=== PATIENT | male | born 1990 | race Caucasian/White ===

== ENCOUNTER 2020-12-14 09:41 | Emergency (ER) | payer BC, SELFPAY ==
[2020-12-14 09:55] VITALS: BP 154/105; PULSE 78; RESP 18; TEMP 36.7; O2SAT 100; BMI 22.9
--- NOTE | 2020-12-14 10:21 | XR_ITS ---
PROCEDURE INFORMATION: Exam: XR Chest Exam date and time: 12/14/2020 10:21 AM Age: 30 years old Clinical indication: Chest pressure; Patient HX: Mid chest pain, per patient pain is also between shoulder blades TECHNIQUE: Imaging protocol: XR of the chest. Views: 1 view. COMPARISON: No relevant prior studies available. FINDINGS: Lungs: Unremarkable. No consolidation. Pleural spaces: Unremarkable. No pleural effusion. No pneumothorax. Heart/Mediastinum: Unremarkable. No cardiomegaly. Bones/joints: Unremarkable. IMPRESSION: No acute findings.
[2020-12-14 10:30] VITALS: BP 162/96; PULSE 70; RESP 22; O2SAT 99
--- NOTE | 2020-12-14 10:33 | ECG_ITS ---
APPROVED REPORT Exam: Resting ECG HR:73 bpm ECG Measurements Heart Rate 73 AXES FL 144 P 63 QRSd 92 QRS 71 QT 366 T 41 QTc 403 Conclusion Normal sinus rhythm Normal ECG Electronically signed by : Akin Kaiser MD 12/14/2020 21:10:04
[2020-12-14 10:53] LABS: Basophils # 0.1 K/mm3 (0-0.2); Basophils % 0.7 % (0.1-2.0); Eosinophils # 0.4 K/mm3 (0.0-0.4); Eosinophils % 5.2 % (0.1-12.0); Hematocrit 46.2 % (42.0-52.0); Hemoglobin 15.4 g/dL (14.1-18.0); Lymphocytes # 2.5 K/mm3 (0.7-4.5); Lymphocytes % 35.7 % (10-50); Mean Corpuscular HGB Conc 33.4 g/dL (31.8-35.4); Mean Corpuscular Hemoglobin 29.2 pg (27.0-31.2); Mean Corpuscular Volume 87.5 fl (80-94); Mean Platelet Volume 6.7 fl (7.4-10.4); Monocytes # 0.4 K/mm3 (0.1-1.0); Monocytes % 6.1 % (1.7-9.3); Neutrophils # 3.6 K/mm3 (1.8-7.8); Neutrophils % 52.3 % (37.0-80.0); Platelet Count 260 K/mm3 (142-424); Red Blood Count 5.28 M/mm3 (4.60-6.20); Red Cell Distribution Width 12.4 % (11.5-17.5); White Blood Count 6.9 K/mm3 (4.8-10.8)
[2020-12-14 10:54] LABS: Chloride 104 mmol/L (98-107); Sodium 141 mmol/L (136-145)
[2020-12-14 10:55] LABS: Potassium 4.3 mmoL/L (3.5-5.1)
[2020-12-14 10:57] LABS: Blood Urea Nitrogen 18 mg/dl (9-20); Creatinine Clearance Estimated 110 mL/min (50-200); Estimated Glomerular Filt Rate 87 ml/min (>60); GFR (African American) 105 ML/MIN (>60)
--- NOTE | 2020-12-14 10:57 | CT_ITS ---
PROCEDURE INFORMATION: Exam: CT Chest With Contrast; Diagnostic Exam date and time: 12/14/2020 10:57 AM Age: 30 years old Clinical indication: Chest wall pain; Additional info: Esophageal foreign body sensation/shart chest pain TECHNIQUE: Imaging protocol: Diagnostic computed tomography of the chest with contrast. Radiation optimization: All CT scans at this facility use at least one of these dose optimization techniques: automated exposure control; mA and/or kV adjustment per patient size (includes targeted exams where dose is matched to clinical indication); or iterative reconstruction. Contrast material: ISOVUE; Contrast volume: 75 ml; Contrast route: IV; COMPARISON: CR XR CHEST PORTABLE 12/14/2020 10:35 AM FINDINGS: Lungs: Unremarkable. No consolidation. No masses. Pleural spaces: Unremarkable. No pneumothorax. No pleural effusion. Heart: Unremarkable. No cardiomegaly. No pericardial effusion. Mediastinal space: No definite radiopaque foreign body identified within the esophagus. Questionable mild esophageal wall thickening. Aorta: Unremarkable. No aortic aneurysm. Lymph nodes: Unremarkable. No enlarged lymph nodes. Bones/joints: Unremarkable. No acute fracture. Soft tissues: Unremarkable. IMPRESSION: No definite radiopaque foreign body identified within the esophagus. Questionable mild esophageal wall thickening.
[2020-12-14 10:58] LABS: Anion Gap 13.3 mEq/L (5-15); Calcium 9.5 mg/dl (8.4-10.2); Carbon Dioxide 28 mmol/L (22.0-30.0); Glucose 105 mg/dl (74-100)
[2020-12-14 11:00] VITALS: BP 152/98; PULSE 70; RESP 14; O2SAT 96
[2020-12-14 11:18] LABS: Troponin I < 0.01 ng/ml (0.00-0.034)
[2020-12-14 13:26] VITALS: BP 120/73; PULSE 65; RESP 14; TEMP 36.8; O2SAT 98
--- NOTE | 2020-12-15 08:03 | HMH.EDGENADL ---
ED Disposition Clinical Impression: Esophagitis Disposition: Home, Self-Care Condition on Discharge: Good Instructions: DI for Esophagitis Additional Instructions: three scripts have been called in to your pharmacy. Return to ED for any worsening symptoms, or you unable to eat or drink. Follow up with with PCP within the next week. Prescriptions: Sucralfate [Carafate 1gm/10mL Susp] 1 gm PO ACHS 10 Days #400 ml Prescription Printed methylPREDNISolone [Medrol] 4 mg PO DIRECTED #21 Prescription Printed Omeprazole [Omeprazole 40mg Capsule] 40 mg PO DAILY 30 Days #30 cap Prescription Printed Referrals: Provider,Referral, [Primary Care Provider] - - Critical Care Critical Care Time: No Attestation: On 12/14/20, the high probability of a clinically significant, sudden or life threatening deterioration of the following system(s) required my full and direct attention, intervention and personal management. The time I documented below is in addition to time spent performing reported procedures but includes the following listed in this critical care notation. Medical Decision Making - Medical Records Medical records reviewed: Yes: I reviewed the patient's medical records. - Geovanny Inquiry Pt receiving controlled substance: No Vital Signs: 12/14/20 09:55 12/14/20 10:30 12/14/20 11:00 Temperature 98.0 F Temperature Source Oral Pulse Rate 70 70 Pulse Rate [Right Brachial] 78 Respiratory Rate 18 22 14 Blood Pressure 162/96 H 152/98 H Blood Pressure [Right Arm] 154/105 H Blood Pressure Mean 119 114 Blood Pressure Mean [Right Arm] 121 Blood Pressure Source Blood Pressure Source [Right Arm] Automatic Cuff Blood Pressure Position Blood Pressure Position [Right Arm] Sitting 02 Sat by Pulse Oximetry 100 99 96 Oxygen Delivery Method Room Air 12/14/20 13:26 Temperature 98.2 F Temperature Source Oral Pulse Rate 65 Pulse Rate [Right Brachial] Respiratory Rate 14 Blood Pressure 120/73 Blood Pressure [Right Arm] Blood Pressure Mean Blood Pressure Mean [Right Arm] Blood Pressure Source Automatic Cuff Blood Pressure Source [Right Arm] Blood Pressure Position Sitting Blood Pressure Position [Right Arm] 02 Sat by Pulse Oximetry Oxygen Delivery Method Room Air - Lab Data Lab Results 12/14/20 10:25: WBC 6.9, RBC 5.28, Hgb 15.4, Hct 46.2, MCV 87.5, MCH 29.2, MCHC 33.4, RDW 12.4, Plt Count 260, MPV 6.7 L, Neut % (Auto) 52.3, Lymph % (Auto) 35.7, Foard % (Auto) 6.1, Eos % (Auto) 5.2, Baso % (Auto) 0.7, Neut # (Auto) 3.6, Lymph # (Auto) 2.5, Foard # (Auto) 0.4, Eos # (Auto) 0.4, Baso # (Auto) 0.1 12/14/20 10:25: Sodium 141, Potassium 4.3, Chloride 104, Carbon Dioxide 28, Anion Gap 13.3, BUN 18, Creatinine 1.00, Estimated Creat Clear 110, Estimated GFR 87, Est GFR ( Amer) 105, Glucose 105 H, Calcium 9.5, Troponin I < 0.01 Result diagrams: 12/14/20 10:25 12/14/20 10:25 Orders (Tests/Meds): ED MEDICATIONS Discontinued Medications Generic Name Dose Route Start Last Admin Trade Name Alina PRN Reason Stop Dose Admin Belladonna Alkaloids 60 ml 12/14/20 10:59 12/14/20 11:19 Gi Cocktail 60ml Udc PO 12/14/20 11:00 60 ml ONCE ONE Administration Diphenhydramine HCl 25 mg 12/14/20 10:59 12/14/20 11:19 Diphenhydramine 50mg/Ml Vial IV 12/14/20 11:00 25 mg ONCE ONE Administration Lactated Ringer's 1,000 mls @ 999 mls/hr 12/14/20 11:00 12/14/20 11:20 Lactated Ringer's 1000 Ml Bag IV 12/14/20 12:00 999 mls/hr .Q1H1M MYRA Administration Iopamidol 75 ml 12/14/20 11:15 12/14/20 11:16 Iopamidol-370 (76%);100ml Bottle IV 12/14/20 11:16 75 ml ONCE ONE Administration Ketorolac Tromethamine 30 mg 12/14/20 10:59 12/14/20 11:19 Ketorolac 30mg/Ml Vial IV 12/14/20 11:00 30 mg ONCE ONE Administration Prochlorperazine Edisylate 10 mg 12/14/20 10:59 12/14/20 11:19 Prochlorperazine 10mg/2ml Vial IV 12/14/20 11:00
== END 2020-12-14 13:29 | disposition home or self-care (01) ==
PROVIDERS: Emergency Provider Emergency Medicine
DX: K20.90 Esophagitis, unspecified without bleeding (principal); Z79.899 Other long term (current) drug therapy
CPT/HCPCS: 71045; 71260; 80048; 84484; 85025; 93005; 96365; 96375; 99282; Q9967

== ENCOUNTER 2022-01-21 14:30 | Emergency (ER) | payer OTHER, BC, SELFPAY ==
[2022-01-21 15:19] VITALS: BMI 23.6
--- NOTE | 2022-01-21 15:20 | XR_ITS ---
FINAL REPORT CLINICAL HISTORY: . smashed right middle finger ,distal tip in car door FINDINGS: 3 views of the right 3rd digit were obtained. There is no acute fracture or dislocation. The joint spaces are intact. There is soft tissue swelling about the 3rd digit. IMPRESSION: Swelling with no acute bony abnormality. Reviewed, Interpreted and Dictated by Aleksandar Moscoso III, MD Transcribed by Darren Unger Authenticated and [facility]
[2022-01-21 15:21] VITALS: BP 149/77; PULSE 80; RESP 18; TEMP 36.7; O2SAT 97; BMI 23.6
--- NOTE | 2022-01-21 15:27 | EXP.UTC ---
Discharge Plan Disposition Patient Disposition: Home, Self-Care Condition: Good Prescriptions Prescriptions: New ibuprofen [IBU] 800 mg tablet 800 mg PO Q8HP PRN (Reason: Moderate Pain) Qty: 30 0RF cephalexin 500 mg capsule 500 mg PO QID Qty: 40 0RF No Action sucralfate 1 GM/10 ML suspension 1 gm PO ACHS 10 Days Qty: 400 0RF omeprazole 40 MG capsule,delayed release(DR/EC) 40 mg PO DAILY 30 Days Qty: 30 0RF methylprednisolone 4 MG tablets,dose pack 4 mg PO DIRECTED Qty: 21 0RF Rx Instructions: take as directed on package instructions Referrals Follow up/Referrals: Provider,Referral, MD [Primary Care Provider] - See instructions Activity Restrictions/Add. Instructions Additional Instructions/Restrictions: Keep the wound clean and dry. Watch the area for signs of infection, such as redness, swelling, drainage, fever. etc. Take ibuprofen for pain. I sent in a prescription to your pharmacy. Take the cephalexin (keflex-antibiotics) as directed. Follow up with your regular doctor. GO TO THE ER FOR ANY WORSENING SYMPTOMS OR CONCERNS. Clinical Impressions Clinical Impression: Crushing injury of right middle finger Instructions Patient Instructions: DI for Crush Injury Discharge ED Provider[place]o Arte[place] [facility] [place] Stated complaint: AO 01/16@[email or web address]@1100 Smashed Rt middle finger Mode of Arrival: Ambulatory Source of Information: Patient Time Seen by Provider: 01/21/22 15:27 Description of Symptoms (Recalled from Triage Doc. by RN): pt to [facility] c/o right middle finger pain after smashing it HEENT Symptoms (Recalled from RN notes): No Resp Symptoms (Recalled from RN notes): No Skin Symptoms (Recalled from RN notes): Yes MS Symptoms (Recalled from RN notes): No Functional Status (Recalled from RN notes): na History of Present Illness Provider Complaint: He states that 4 days ago he smashed his right middle finger in his truck door. Since then he has had pain and swelling of the end of that finger. He has bruising beneath the affected nail. Related Data Previous Rx's Medication Instructions Recorded methylprednisolone 4 mg tablets in 4 mg PO DIRECTED ##21 12/14/20 a dose pack omeprazole 40 mg capsule,delayed 40 mg PO DAILY 30 days #30 caps 12/14/20 release sucralfate 100 mg/mL oral 1 gm PO ACHS 10 days #400 mL 12/14/20 suspension cephalexin 500 mg capsule 500 mg PO QID #40 caps 01/21/22 ibuprofen 800 mg tablet (IBU) 800 mg PO Q8HP PRN Moderate Pain 01/21/22 #30 tabs Allergies Allergy/AdvReac Type Severity Reaction Status Date / Time No Known Allergies Allergy Verified 12/14/20 10:52 Worker's Comp Is this a Worker's Comp case?: No PFSH PFSH Social History Smoking Status: Never smoker alcohol intake: current substance use type: denies use current occupational status: employed Travel in the last 8 weeks: None ROS Obtained: Yes All systems reviewed & no additional complaints except as documented Constitutional Constitutional: Denies chills and Denies fever(s) Eyes Eyes: Denies eye discharge ENT Ears, Nose, Mouth, and Throat: Denies dizziness, Denies otalgia and Denies sore throat Cardiovascular Cardiovascular: Denies chest pain Respiratory Respiratory: Denies shortness of breath, Denies chest congestion, Denies cough, Denies stridor and Denies wheezing Gastrointestinal Gastrointestingal: Denies nausea or vomiting Musculoskeletal Musculoskeletal: Reports system reviewed and no additional complaints, except as documented and Denies arthralgias Integumentary/Breasts Skin/Breast: Reports as per HPI Neurologic Neurologic: Denies dizziness and Denies paresthesias Allergic/Immunologic Allergic/Immunologic: Denies wheezing Physical Exam General General appearance: alert and in no apparent distress Head Head exam: atraumatic, normocephalic and normal inspection Eye Eye
[2022-01-21 16:26] VITALS: BP 150/82; PULSE 83; RESP 19; TEMP 36.7; O2SAT 97
== END 2022-01-21 16:27 | disposition home or self-care (01) ==
PROVIDERS: Emergency Provider Nurse Practitioner Family
DX: S67.192A Crushing injury of right middle finger, initial encounter (principal); W23.0XXA Caught, crushed, jammed, or pinched between moving objects, initial encounter
CPT/HCPCS: 73140; 99212; G0463

== ENCOUNTER → 2022-12-18 08:26 | Outpatient (CLI) | payer OTHER, SELFPAY ==
--- NOTE | 2022-12-18 | CA_ITS ---
APPROVED REPORT EXAM: Comprehensive 2D, Doppler, and color-flow Echocardiogram Map Compiler: Kesha Rooney RT(R) Ht: 5 ft 10 in Wt: 165lbs BSA: 1.92 BP: 149/77 mmHg Indications: cp, murmur, palpitations, hyperlipidemia, family history of HD, left shoulder pain. 2D Dimensions LVOT 1.99 cm (M/F) 1.5-2.5 LVEF (Jackson's) 43.60 % M: 52 - 72 LV Volume 113.90 mL M: 62 - 150 LV Volume Index 59.02 mL/m2 M: 34 - 74 LA Volume 20.80 mL LA Volume Index 10.78 mL/m2 (M/F) 16-34 M-Mode Dimensions RVDd 1.75 cm (0.9-2.6) LA Diam 2.55 cm (1.9-4.0) LVDd 5.15 cm (3.5-5.7) Ao Diam 2.76 cm (2.0-3.7) LVDs 3.65 cm (3.5-5.7) IVSd 0.79 cm (0.6-1.1) PWd 0.64 cm (0.6-1.1) EF (Teich) 55.50% FS 29.10% EDV (Teich) 126.60 mL TAPSE 1.75 (<1.7) ESV (Teich) 56.30 mL LV Diastology E Decel Time 187.00 (160-240 msec) E/A Ratio 1.3 MED E' 9.70 (< 7 cm/sec) E'/MED E' Ratio 8.68 (>14) LAT E' 10.50 (<10 cm/sec) E/LAT E' Ratio 8.02 (>14) Mitral Valve MV E Max Philip. 84.00 (40-130 cm/s) MV A Velocity 67.00 (40-130 cm/s) E/A Ratio 1.25 MV Decel. Time 187.00 (160-240 ms) MV PHT 55.00 ms Tricuspid Valve TR P. Velocity 172.00 cm/s RAP Estimate 10.00 mmHg RVSP 21.80 mmHg Left Ventricle The left ventricle is normal size. The left ventricular systolic function is normal. The left ventricular ejection fraction is within the normal range. There is normal left ventricular wall thickness. There is normal LV segmental wall motion. The left ventricular diastolic function is normal. LVEF is 60%. Right Ventricle The right ventricle is normal size. The right ventricular systolic function is normal. A moderator band is noted (normal finding). Atria The left atrium size is normal. The right atrium size is normal. There is no Doppler evidence of interatrial shunt. Aortic Valve The aortic valve opens well. There is no aortic valvular stenosis. No aortic regurgitation is present. Mitral Valve The mitral valve is normal in structure. No evidence of mitral valve stenosis. Trace mitral regurgitation. Tricuspid Valve The tricuspid valve leaflets are thin and pliable. Trace tricuspid regurgitation. RVSP is normal. Pulmonic Valve The pulmonary valve is normal in structure. Trace pulmonic regurgitation. Great Vessels The aortic root is normal in size. The ascending aorta is normal in size. IVC is normal in size and collapses >50% with inspiration. Pericardium There is no pericardial effusion. Other Information Study Quality: Adequate Conclusion Normal biventricular systolic function. No significant valvular stenosis or regurgitation. Electronically signed by : Ariana Cruz MD 12/20/2022 15:36:55
== END ==
PROVIDERS: PCP Nurse Practitioner Family; Visit Provider Nurse Practitioner Family
DX: R07.89 Other chest pain (principal)
CPT/HCPCS: 93306

== ENCOUNTER → 2023-01-06 07:58 | Outpatient (CLI) | payer SELFPAY ==
--- NOTE | 2023-01-06 08:05 | CT_ITS ---
APPROVED REPORT Dental Surgeon: CLINICAL INDICATION Presence of Risk Factors TECHNIQUE Image Acquisition: A 128 slice MDCT scanner ([employer]a View) was used for data acquisition. A noncontrast coronary calcium scan was performed. A CT attenuation threshold of 130 Hounsfield units (HU) was used for the detection of calcium in contiguous voxels of 1 sq mm in area to be counted as individual lesions. A tube voltage of 120 KVp was used. The patient received no medications prior to the coronary calcium CT. Image Reconstruction Transaxial images were reconstructed at 0.67 mm slide thickness. Data was reviewed interactively on an advanced workstation capable of 2 and 3-dimensional displays in all conventional reconstruction formats, including multiplanar reformations, maximum intensity projections, curved multiplanar reformations, and volume rendered reconstructions. When applicable, selected routine images describing the relevant coronary anatomy and pathology were saved and sent to PACS. Complications None Technical Quality Overall image quality was good. Total DLP (Dose-Length Product) is 215.87 mGy-cm. The reported value represents the total of one or more individual components during the CT acquisition of this date and at this time, and as such, the same value may appear in more than one CT report depending on the interpreting/reporting physicians. COMPARISON None FINDINGS CT Coronary Calcium Scoring LMA (Left Main Artery) = 0 LAD (Left Anterior Descending) = 0 LCX (Left Coronary Circumflex) = 0 RCA (Right Coronary Artery) = 0 Total Calcium Score = 0 using the AJ-130 method. There is no identifiable calcification in the aortic valve, mitral annulus or mitral valve, pericardium, or myocardium. IMPRESSION -Coronary artery calcification is absent. -Total Calcium Score (Agatston Score) = 0 using the AJ-130 method. The interpretation of the calcium heart score is based on the following continuum*: 0 = no calcified plaque detected (risk of coronary artery disease is very low ??? less than 5%) 1-10 = calcium detected in extremely minimal levels (risk of coronary diseases is still low ??? less than 10%) 11-100 = mild levels of plaque detected with certainty (minimal narrowing of heart arteries is likely) 101-300 = moderate levels of plaque detected (relatively high risk of a heart attack within 3-5 years) 300-400 = extensive levels of plaque detected (very high risk of heart attack, high levels of vascular disease are present) *The calcium heart score quantifies the burden of coronary calcification/plaque in the coronary arteries. The calcium heart score does not evaluate the presence or burden of non-calcified (i.e. soft) plaque. CRITICAL RESULT None COMMUNICATION Per this written report The coronary and cardiac findings of this Coronary Calcium CT were reviewed, reported, and signed by Osmani Cruz MD (Claim Service Representative). Conclusion Electronically signed by : Ariana Cruz MD 01/06/2023 10:20:52
== END ==
PROVIDERS: PCP Nurse Practitioner Family; Visit Provider Nurse Practitioner Family
DX: Z13.6 Encounter for screening for cardiovascular disorders (principal); E78.5 Hyperlipidemia, unspecified; Z82.49 Family history of ischemic heart disease and other diseases of the circulatory system
CPT/HCPCS: 75571

== ENCOUNTER 2023-04-18 09:46 | Emergency (ER) | payer OTHER, SELFPAY ==
[2023-04-18 09:47] VITALS: BP 173/89; PULSE 75; RESP 15; TEMP 36.6; O2SAT 100; BMI 23.6
[2023-04-18 09:50] VITALS: BP 173/89; PULSE 83; O2SAT 100
--- NOTE | 2023-04-18 09:53 | PC.NURSE ---
Dr. Monet at [facility] for pt eval
[2023-04-18 10:00] VITALS: BP 152/87; PULSE 83; O2SAT 99
--- NOTE | 2023-04-18 10:00 | HMH.EDGENADL ---
Discharge Plan Disposition Patient Disposition: Home, Self-Care Condition: Good Prescriptions Prescriptions: No Action sucralfate 1 GM/10 ML suspension 1 gm PO ACHS 10 Days Qty: 400 0RF omeprazole 40 MG capsule,delayed release(DR/EC) 40 mg PO DAILY 30 Days Qty: 30 0RF methylprednisolone 4 MG tablets,dose pack 4 mg PO DIRECTED Qty: 21 0RF Rx Instructions: take as directed on package instructions ibuprofen [IBU] 800 mg tablet 800 mg PO Q8HP PRN (Reason: Moderate Pain) Qty: 30 0RF cephalexin 500 mg capsule 500 mg PO QID Qty: 40 0RF Referrals Follow up/Referrals: Provider,Referral, MD [Primary Care Provider] - See instructions Activity Restrictions/Add. Instructions Additional Instructions/Restrictions: You were evaluated in the ER for concerns of back pain. At this time you are appropriate for discharge. Continue taking your home methocarbamol as directed. Also take Tylenol and ibuprofen, do not exceed the recommended doses on the bottles and always eat/drink with each of these medications. Remove the lidocaine patch this evening. Make an appointment with your grounds restoration specialist as soon as possible for follow-up, also make an appoint with your primary care physician for reevaluation in 2 to 3 days. Return to the ER with new, worsening, or otherwise concerning symptoms as discussed. Clinical Impressions Clinical Impression: Back pain, Muscle spasm Discharge ED Provider: Segundo Monet Adult HPI General Chief complaint: PAIN Stated complaint: back pain Time Seen by Provider: 04/18/23 09:51 Mode of Arrival: Wheelchair Source of Information: Patient Limitations: No Limitations Description of Symptoms (Recalled from ER Triage Doc. by RN): pt presents to ED with c/o lower back pain. pt reports he has hx of back issues. pt reports he was bent over doing something and felt pain in his back. History of Present Illness HPI narrative: This 32-year-old male with a history of prior disc injury presents to the ER with concerns of back pain. He states he has had back pain for the last 15 years. He also had a transverse process fracture back in October after a traumatic injury. Patient states he was lifting something and felt acute pain in his back at the same area as his prior disc injury. He states he has never had surgery on the back. Patient states he is currently unable to walk due to pain but has movement of the legs and sensation intact, no numbness, no bowel or bladder incontinence, no difficulty using the restroom. Patient states he took 500 mg Robaxin and came to the ER for evaluation. He states this feels exactly like his prior disc injury and that his muscles in the area are tight. Related Data Previous Rx's Medication Instructions Recorded methylprednisolone 4 mg tablets in 4 mg PO DIRECTED ##21 12/14/20 a dose pack omeprazole 40 mg capsule,delayed 40 mg PO DAILY 30 days #30 caps 12/14/20 release sucralfate 100 mg/mL oral 1 gm PO ACHS 10 days #400 mL 12/14/20 suspension cephalexin 500 mg capsule 500 mg PO QID #40 caps 01/21/22 ibuprofen 800 mg tablet (IBU) 800 mg PO Q8HP PRN Moderate Pain 01/21/22 #30 tabs Allergies Allergy/AdvReac Type Severity Reaction Status Date / Time No Known Allergies Allergy Verified 04/18/23 09:58 [facility] Disclaimer: The information contained in this section may have been updated after the patient was seen, as this information can be updated by other users. Social History Smoking Status: Never smoker alcohol intake: current substance use type: denies use current occupational status: employed Travel in the last 8 weeks: None ROS Obtained: Yes All systems reviewed & no additional complaints except as documented Constitutional Constitutional: Denies chills, Denies fever(s), Denies headache(s) and Denies weakness Eyes Eyes: Denies change in vision ENT Ears, Nose, Mouth, and Throat: Denies dizziness, Denies headache(s), Denies nasal congestion and Denies sore throat Cardiovascular Cardiovascular: Denies chest pain, Denies dyspnea and Denies leg edema Respiratory Respiratory: Denies cough and Denies dyspnea Gastrointestinal Gastrointestingal: Denies constipation, diarrhea, nausea or vomiting Genitourinary Male Genitourinary: Denies difficulty urinating Musculoskeletal Musculoskeletal: Denies arthralgias, Reports back pain, Denies myalgias, Denies numbness and Denies tingling Integumentary/Breasts Skin/Breast: Denies change in pigmentation Neurologic Neurologic: Denies dizziness, Denies headache(s), Denies numbness, Denies tingling and Denies weakness Physical Exam General General appearance: alert and in no apparent distress Head Head exam: atraumatic and normocephalic Eye Eye exam: Present PERRL and EOMI ENT ENT exam: Present mucous membranes moist Neck Neck exam: Present normal inspection and full ROM Chest Chest inspection: Present symmetric chest wall rise Respiratory Respiratory exam: Absent respiratory distress or stridor Cardiovascular Cardiovascular exam: Present regular rate and normal rhythm Abdominal Exam Abdominal exam: Absent distention Extremities Exam Extremities exam: Present full ROM; Absent tenderness Back Exam Back exam: Present tenderness (Midline mid lumbar tenderness without deformity or step-off), paraspinal tenderness (In the mid lumbar area, muscles are tight), straight leg raise (R) and straight leg raise (L) Neurological Exam Neurological exam: Present alert, oriented X3 and other (Patient able to move bilateral lower extremities independently, he used a wheelchair to come into the ER due to pain, no saddle anesthesia); Absent motor sensory deficit Psychiatric Psychiatric exam: Present normal affect and normal mood Skin Skin exam: Present warm and dry Medical Decision Making Geovanny Inquiry Pt receiving controlled substance: No Vital Signs: 04/18/23 09:47 04/18/23 09:50 04/18/23 10:00 Temperature 97.8 F Temperature Source Oral Pulse Rate 83 83 Pulse Rate [Left Radial] 75 Respiratory Rate 15 Blood Pressure 173/89 H 152/87 H Blood Pressure [Right Arm] 173/89 H Blood Pressure Mean [Right Arm] 117 02 Sat by Pulse Oximetry 100 100 99 Oxygen Delivery Method Room Air Room Air Room Air 04/18/23 10:31 Temperature Temperature Source Pulse Rate 84 Pulse Rate [Left Radial] Respiratory Rate Blood Pressure 136/88 Blood Pressure [Right Arm] Blood Pressure Mean [Right Arm] 02 Sat by Pulse Oximetry 98 Oxygen Delivery Method Room Air Orders (Tests/Meds): ED MEDICATIONS Discontinued Medications Generic Name Dose Route Start Last Admin Trade Name Freq PRN Reason Stop Dose Admin Acetaminophen 1,000 mg 04/18/23 09:58 04/18/23 10:03 Acetaminophen 500mg Tab PO 04/18/23 09:59 1,000 mg ONCE ONE Administration Ketorolac Tromethamine 30 mg 04/18/23 09:58 04/18/23 10:05 Ketorolac 30mg/Ml Vial IM 04/18/23 09:59 30 mg ONCE ONE Administration Lidocaine 1 each 04/18/23 09:58 04/18/23 10:03 Lidocaine 5% Transdermal Patch TP 04/18/23 09:59 1 each ONCE ONE Administration Methocarbamol 500 mg 04/18/23 09:59 04/18/23 10:04 Methocarbamol 500mg Tablet PO 04/18/23 10:00 500 mg ONCE ONE Administration Medical Decision Narrative: In summary, this 32year old male presents to the emergency department today with back pain. On initial evaluation patient is hemodynamically stable, afebrile, physical exam notable for midline and paraspinal mid lumbar tenderness with muscle spasm, positive straight leg raise bilaterally, motor function intact in the bilateral lower extremities, no sensory deficits, no saddle anesthesia, patient denies bowel or bladder incontinence or retention. Differential diagnosis includes but is not limited to muscle spasm, radiculopathy, disc injury, I did consider cauda equina however patient has no red flag symptoms. I discussed the option of CT imaging given patient has history of prior transverse process fracture however after shared decision-making, he is not interested in this since he did not have an acute traumatic injury such as fall or impact which is what had previously caused fracture. Based on these concerns, I ordered Tylenol, Toradol, additional Robaxin, and lidocaine patch for multimodal pain control. Postvoid residual volume 0 mL further reassurance against cauda equina. On reassessment patient's pain has improved. He was able to ambulate in the bathroom and is comfortable going home. He states he has plenty of methocarbamol left at home so I instructed him to continue taking this and also recommended Tylenol and ibuprofen. I offered prescription for lidocaine patch however he declined this. Patient already has a grounds restoration specialist so I instructed him to call and make an appointment with them soon as possible for reevaluation. Patient was given instructions on symptomatic management, follow up instructions, and return precautions for the emergency department. Patient indicated understanding and was discharged in stable condition. Critical Care Critical Care Time Critical Care Time: No
[2023-04-18] MEDS: ACETAMINOPHEN 500MG TAB 1000 MG PO (10:03)
[2023-04-18] MEDS: LIDOCAINE 5% TRANSDERMAL PATCH 1 EACH TP (10:03)
[2023-04-18] MEDS: METHOCARBAMOL 500MG TABLET 500 MG PO (10:04)
[2023-04-18] MEDS: KETOROLAC 30MG/ML VIAL 30 MG IM (10:05)
[2023-04-18 10:31] VITALS: BP 136/88; PULSE 84; O2SAT 98
--- NOTE | 2023-04-18 11:01 | PC.NURSE ---
bladder scan reading is 0 ml, Dr. Monet, pt states that he is able to make it in the house now
[2023-04-18 11:14] VITALS: BP 136/88; PULSE 82; RESP 18; TEMP 36.2; O2SAT 98
== END 2023-04-18 11:18 | disposition home or self-care (01) ==
PROVIDERS: Emergency Provider Emergency Medicine
DX: M54.50 Low back pain, unspecified (principal); M62.830 Muscle spasm of back; X50.0XXA Overexertion from strenuous movement or load, initial encounter
CPT/HCPCS: 96372; 99283

== ENCOUNTER 2023-06-21 11:00 | Outpatient (RCR) | payer OTHER, SELFPAY ==
--- NOTE | 2023-05-27 11:02 | HMH.PTOPEV ---
PT Outpatient Evaluation Rehab PT Outpatient Evaluation Start: 05/27/23 10:03 Freq: Status: Active Protocol: Document 05/27/23 10:46 VELIA (Rec: 05/27/23 11:02 PORTILLOGREGORIO [id number]) E-signed By Tyson Junior, PT Outpatient Therapy Subjective History Subjective History Patient is a 32 year old male presenting to outpatient PT with reports of acute on chronic LBP with LLE radicular symptoms. Patient reports that in the past year he fell on a rock, fracturing 2 vertebrae in the lumbar spine, resulting in more frequent exacerbation of symptoms. Radicular symptoms decreased with lumbar extension, increased with lumbar flexion, indicating disc pathology. SI special tests indicate L posterior rotation of the innominant. Patient has previously been seen by chiro with minimal lasting improvements noted. Patient reports most recent MRI indicates LS disc protrusion/ herniation. No reports on file to confirm. No other comorbidities to report. New diagnosis of cancer in past 12 No months? Chief Complaint Pain,Spasms,Stiff,Paresthesia Symptom Type Ache,Dull,Numbness,Tingling Symptoms Relieved By Rest/Positioning,Heat, Prescription Meds Symptoms Aggravated By Standing,Bending/Stooping, Physical Activity,Lifting Prior Functional Limitations None Current Functional Limitations Lifting,Housework,Standing, Squatting,Recreation Activity, Bending/Stooping Symptom Description Constant but Variable Level of pain today (0-10) 2 Pain scale - at its best (0-10) 2 Pain scale - at its worst (0-10) 5 Lumbopelvic Eval Posture Thoracic Spine Posture Standing Position Neutral Lumbar Spine Posture Standing Position Neutral Assistive device Assistive Devices None / NA Palapation tenderness left Lumbar/Sacral Palpation Findings Tenderness Lumbar/Sacral Palpation Overall Comment L SIJ, gluteal and piriformis mm 3/4 Accessory Movement L4 left L5 left Range of Motion Lumbar Spine Active Flexion Range of 62 inc radic Motion (degrees) Lumbar Spine Active Extension Range of 20 Motion (degrees) Left Lumbar Spine Lateral Flexion Active 19 Range of Motion (degrees) Right Lumbar Spine Lateral Flexion 23 Active Range of Motion (degrees) Lumbar Spine ROM Limitations Soft Tissue Tightness,Pain Manual Muscle Test Bilateral Knee Extension Strength Grade 5 Normal Knee Flexion Strength Grade 5 Normal Hip Flexion Strength Grade 5 Normal Extensor Hallucis Longus Strength Grade 5 Normal Ankle Dorsiflexion Strength Grade 5 Normal Gastronemius/Soleus Strength Grade 5 Normal Altered Sensation Left LE Dermatome Level L4,L5 Comment NT Special Tests Lumbar Spine Screen Positive Hip Clint (HEAVEN) Test Positive Left,Positive Right Hip Misbah Test Positive Left,Positive Right Hip Piriformis Test Positive Left,Positive Right Sciatic Nerve Tension Test Negative Right,Positive Left Vicente Test Positive Sacroiliac Joint Compression Test Positive Left Sacroiliac Joint Distraction Test Positive Left Lumbar Long [place] Distraction Test/Manual Positive Traction Oswestry Index Section 1 Pain Intensity The pain comes and goes and is severe Section 2 Personal Care (Washing,Dresing) unable to do some washing and dressing without help Section 3 Lifting lifting heavy weights off the floor, but I can manage light to medium Section 4 Walking I have some pain when walking but it does not increase with distance Section 5 Sitting I can sit in my favorite chair for as long as I like Section 6 Standing I cannot stand more than 1/2 hour without increasing pain Section 7 Sleeping Because of my pain, my normal night's sleep is less than 4 hours Section 8 Social Life Pain has no significant effect on my social life apart from limiting Section 9 Traveling I get some pain when traveling , but none of my usual forms of travel m Section 10 Changing Degreee of Pain My pain seems to be getting better, but improvement is slow Score and Risk Level Oswestry Sc 25 Oswestry Risk Level Severe Disability Outpatient Therapy Assessment Impairments Problems/Impairmments Palpation Tenderness,Impaired Range of Motion,Impaired Strength,Impaired Standing, Impaired Lifting,Impaired Household Care,Impaired Squatting,Impaired Bending, Impaired Recreational Activities,Impaired Work Activities,Subjective C/O Pain Prognosis Rehab Potential Good Clinical Impression Consistent with Diagnosis Yes Consistent with L posterior innominant Short Term Goals Number of Weeks 2 Decrease Subjective C/O Pain Yes: 07/06 at worst Patient to be Ind w/ HEP Yes [facility] Goals Number of Weeks 4-6 Decreased Palpation Tenderness Yes: 1/ Increase Range of Motion Yes: WNL Increase Strength Yes: 07/31 core stabilization with bridge/plank/side plank Increase Ability to Stand Yes: 1 hr without difficulty Improve Ability For Household Care Yes Improve Tolerance to Work Activities Yes Improve Oswestry Score Yes: mild disability Decrease Subjective C/O Pain Yes: 04/07 at worst Outpatient Therapy Plan of Care Treatment Plan May Include Therapeutic Exercise Including Home Yes Exercise Program Manual Therapy Techniques Yes Neuromuscular Re-education Yes Therapeutic Activities to Return to Yes Previous Functional/Work Level Gait Training Yes ADL/Self Care Education Yes Mechanical Traction Yes Dry Needling Yes Thermal Modalities Yes Electrical Stimulation Yes Ultrasound/Phonophoresis Yes Iontophoresis Yes Orthotics/Bracing/Splinting Yes Massage Yes Eval/Re-Eval Yes Frequency Times per week 2 Duration Number of Weeks 4-6 Addendums This patient is a candidate for social No or vocational rehab? Patient/Guardian verbally acknowledges Yes understanding of treatment program and consents to further treatment? Patient/Guardian verbally acknowledges Yes understanding of diagnosis, prognosis and goals for treatment? Eval Complexity PT Charges 41037 - Moderate Complexity Shoulder/Elbow Eval Shoulder Objective Measurements Elbow Objective Measurements PHYSICIAN CERTIFICATION: I certify the specified therapy services for Eliecer Mercedes are required, authorized, and reviewed every 30 days.
== END 2023-06-21 12:10 | disposition home or self-care (01) ==
LOC: PT 11:00
PROVIDERS: Visit Provider Nurse Practitioner Family
DX: M54.42 Lumbago with sciatica, left side (principal)
CPT/HCPCS: 97010; 97014; 97035; 97110; 97140; 97163; 97530; G0283